=== PATIENT | female | born 1975 | race Caucasian/White ===

== ENCOUNTER 2019-04-05 23:58 | Observation (INO) | payer MEDICARE, OTHER ==
[~2019-04-05] VITALS: Ht 175.3 cm; Wt 52.7 kg
[2019-04-06] MEDS ORDERED: DONEPEZIL HCL10 MG PO (00:15)
[2019-04-06] MEDS ORDERED: QUETIAPINE PO (00:32)
[2019-04-06 00:48] LABS: BASOPHILS 0.2 % (0-2); EOSINOPHILS 0.2 % (0-7); HEMATOCRIT 39.7 % (36.0-48.0); HEMOGLOBIN 13.5 g/dL (12-16); IMMATURE GRANULOCYTES 0.3 % (0-5); LYMPHOCYTES 13.8 % (15-50); MCH 30.3 pg (26.0-34.0); MEAN PLATELET VOLUME 9.8 fL (7.4-10.4); MONOCYTES 7.6 % (2-11); NEUTROPHILS 77.9 % (40-80); PLATELET COUNT 228 10x3/uL (130-400); RBC 4.46 10x6/uL (4.00-5.40); RDW 13.3 % (11.5-14.5); WBC 11.8 10x3/uL (4.8-10.8)
--- NOTE | 2019-04-06 01:01 | NUR ---
PT UP TO [facility] TO TRY AND GIVE URINE.
[2019-04-06 01:03] LABS: CALC OSMOLALITY 281 mosm/kg (275-300); CALCIUM 8.9 mg/dL (8.5-10.1); CARBON DIOXIDE 23.7 mmol/L (21.0-32.0); CHLORIDE - SERUM 107 mmol/L (98-107); CREATININE - SERUM 0.7 mg/dL (0.6-1.3); GLUCOSE 93 mg/dL (74-106); POTASSIUM - SERUM 3.4 mmol/L (3.5-5.1); SODIUM 142 mmol/L (136-145); UREA NITROGEN 10 mg/dL (7-18); eGFR NON AFRICAN AMERICAN > 90 mL/min (90-120)
[2019-04-06 01:08] LABS: ALBUMIN 3.6 g/dL (3.4-5.0); ALKALINE PHOSPHATASE 61 U/L (46-116); ALT (SGPT) 31 U/L (10-68); BILIRUBIN - TOTAL 0.86 mg/dL (0.2-1.3); PROTEIN - SERUM 6.5 g/dL (6.4-8.2)
--- NOTE | 2019-04-06 01:11 | NUR ---
VOIDED 500 CC'S. URINE TO LAB. PT SMILING. 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
[2019-04-06 01:18] LABS: APPEARANCE CLEAR (CLEAR); BILIRUBIN NEGATIVE (NEGATIVE); COLOR YELLOW (YELLOW); GLUCOSE NEGATIVE (NEGATIVE); KETONE NEGATIVE (NEGATIVE); NITRITE NEGATIVE (NEGATIVE); PROTEIN NEGATIVE (NEGATIVE); UROBILINOGEN NORMAL (NORMAL)
[2019-04-06 01:25] LABS: UDS - AMPHET NEGATIVE QUAL (NEGATIVE); UDS - BARB NEGATIVE QUAL (NEGATIVE); UDS - BENZO POSITIVE QUAL (NEGATIVE); UDS - COCAINE NEGATIVE QUAL (NEGATIVE); UDS - OPIATE NEGATIVE QUAL (NEGATIVE); UDS - PCP NEGATIVE QUAL (NEGATIVE); UDS - THC NEGATIVE QUAL (NEGATIVE)
--- NOTE | 2019-04-06 03:00 | NUR ---
RECORDS FAXED TO [facility] IN [place].
--- NOTE | 2019-04-06 03:47 | NUR ---
RESTING QUIETLY. RE-FAXED TO [facility].
--- NOTE | 2019-04-06 04:37 | NUR ---
CT ORDERED. KLAMATH FALLS Yamsafer ON PHONE WITH SISTERFRANCES TO GIVE MORE INFO.
--- NOTE | 2019-04-06 05:34 | NUR ---
CT RESULTS BACK. PT RESTING WITH EYES CLOSED.
--- NOTE | 2019-04-06 06:43 | NUR ---
COPIES OF POA PLACED ON CHART.
--- NOTE | 2019-04-06 08:25 | NUR ---
GORDY HEARD YELLING AND BANGING. I WALKED IN TO SEE GORDY HITTING THE BEDSIDE TABLE. SAT DOWN ON BED AND LAID BACK. "I WANT TO GO HOME." FAMILY IN ROOM STATES SHE WAS "FINE 2 MIN AGO." PATIENT SEEMED CALM UPON LEAVING THE ROOM.
[2019-04-06] MEDS ORDERED: DONEPEZIL HCL5 MG PO (08:34)
[2019-04-06] MEDS ORDERED: SEROQUEL25 MG PO ×2 (08:35→08:38)
[2019-04-06] MEDS ORDERED: TAPAZOLE 5 MG TA5 MG PO (08:36)
[2019-04-06 08:41] VITALS: BP 116/63
[2019-04-06 10:22] VITALS: BP 116/63; Ht 175.3 cm; Wt 52.7 kg
[2019-04-06 10:31] LABS: T4 THYROXINE 6.6 ug/dL (4.7-13.3); THYROID STIMULATING HORMONE 2.71 uIU/mL (0.36-3.74)
[2019-04-06 12:06] VITALS: BP 105/52
--- NOTE | 2019-04-06 16:22 | MORECARE ---
CASE MANAGEMENT DISCHARGE SUMMARY PATIENT: HENRIK VENTURA UNIT: [id number] ADM DATE: 04/06/19 AGE: 43 : [birth year] SEX: F ROOM/BED: D.2231 AUTHOR: LENORE SEWELL PHYSICIAN: REFERRING PHYSICIAN: NILDA REMY MD DATE OF SERVICE: 04/06/19 Discharge Plan Patient Name: HENRIK VENTURA Facility: [facility]:[place] : 1975 Planned Disposition: Home Anticipated Discharge Date: Discharge Date: Expected LOS: Initial Reviewer: [email or web address] Initial Review Date: 04/06/2019 Generated: 04/06/19 5:22 pm Comments DCP- Discharge Planning Updated by [email or web address]: Bre Randolph on 04/06/19 3:[address] Patient Name: HENRIK VENTURA Admission Status: ER Accout number: [id number] Admission Date: 04-06-2019 : 1975 Admission Diagnosis: Attending: NILDA REMY Current LOS: 1 Anticipated DC Date: Planned Disposition: Home Primary Insurance: MEDICARE A & B Discharge Planning Comments: CM met with patient and family to complete initial dc planning assessment. CM educated patient on the CM role and verbal consent given by patient to complete assessment. Patient lives at home with her parents where she is partially independent At discharge patient plans to return home and feels this is a safe discharge. CM discussed availability of home health, rehab services, and medical equipment. Her family will drive her home at discharge. Patient denied known discharge needs at this time. CM will continue to follow and will assist as needed with dc plans/needs. Detective Lieutenant: Bre Randolph DCPIA - Discharge Planning Initial Assessment Updated by [email or web address]: Bre Randolph on 04/06/19 4:17 pm * Is the patient Alert and Oriented? Yes * How many steps to enter\exit or inside your home? * PCP BOB * Pharmacy [facility] * Preadmission Environment Home with Family * ADLs Partial Dependent * Partial ADLs (Assistance needed) Ambulation Bathing Dressing Eating Medication Management Toileting Transfers * Equipment None * List name and contact numbers for known caregivers / representatives who currently or will assist patient after discharge: WENDY VENTURA - [facility] - [phone] * Verbal permission to speak to the caregivers and representatives has been obtained from the patient. Yes * Community resources currently utilized None * Additional services required to return to the preadmission environment? No * Can the patient safely return to the preadmission environment? Yes * Has this patient been hospitalized within the prior 30 days at any hospital? No Patient Name: HENRIK VENTURA Page [id number] at 1622 All edits/amendments must be made on the electronic document DICTATION DATE: 04/06/191620 MECHANICAL DEVELOPER PROVER: JULIEN 04/06/191620 RPT#: [id number] DC DATE: STATUS: ADM IN [facility] [address] [place] [address] END OF REPORT
--- NOTE | 2019-04-06 16:44 | NUR ---
DISCHARGE INSTRUCTIONS GIVEN. PATIENT FAMILY VERBALIZED UNDERSTANDING. ESCORTED TO FRONT MYSELF VIA WHEELCHAIR.
--- NOTE | 2019-04-06 19:54 | MORECARE ---
CASE MANAGEMENT DISCHARGE SUMMARY PATIENT: HENRIK VENTURA UNIT: [id number] ADM DATE: 04/06/19 AGE: 43 : 73 SEX: F ROOM/BED: D.2231 AUTHOR: DONATODOC PHYSICIAN: REFERRING PHYSICIAN: NILDA REMY MD DATE OF SERVICE: 04/06/19 Discharge Plan Patient Name: HENRIK VENTURA Facility: [facility]:[place] : 1975 Planned Disposition: Home Anticipated Discharge Date: Discharge Date: 04/06/2019 Expected LOS: Initial Reviewer: [email or web address] Initial Review Date: 04/06/2019 Generated: 04/06/19 8:54 pm Comments DCP- Discharge Planning Updated by [email or web address]: Bre Randolph on 04/06/19 3:[address] Patient Name: HENRIK VENTURA Admission Status: ER Accout number: [id number] Admission Date: 04-06-2019 : 1975 Admission Diagnosis: Attending: NILDA REMY Current LOS: 1 Anticipated DC Date: Planned Disposition: Home Primary Insurance: MEDICARE A & B Discharge Planning Comments: CM met with patient and family to complete initial dc planning assessment. CM educated patient on the CM role and verbal consent given by patient to complete assessment. Patient lives at home with her parents where she is partially independent At discharge patient plans to return home and feels this is a safe discharge. CM discussed availability of home health, rehab services, and medical equipment. Her family will drive her home at discharge. Patient denied known discharge needs at this time. CM will continue to follow and will assist as needed with dc plans/needs. Smelter Liner: Bre Randolph DCPIA - Discharge Planning Initial Assessment Updated by [email or web address]: Bre Randolph on 04/06/19 4:17 pm * Is the patient Alert and Oriented? Yes * How many steps to enter\exit or inside your home? * PCP BOB * Pharmacy [facility] * Preadmission Environment Home with Family * ADLs Partial Dependent * Partial ADLs (Assistance needed) Ambulation Bathing Dressing Eating Medication Management Toileting Transfers * Equipment None * List name and contact numbers for known caregivers / representatives who currently or will assist patient after discharge: WENDY VENTURA - [facility] - [phone] * Verbal permission to speak to the caregivers and representatives has been obtained from the patient. Yes * Community resources currently utilized None * Additional services required to return to the preadmission environment? No * Can the patient safely return to the preadmission environment? Yes * Has this patient been hospitalized within the prior 30 days at any hospital? No Last DP export: 04/06/19 3:22 pm Patient Name: HENRIK VENTURA Page [id number] at 1953 All edits/amendments must be made on the electronic document DICTATION DATE: 04/06/191953 ANIMAL PATHOLOGY TEACHER: JULIEN 04/06/191953 RPT#: [id number] DC DATE:04/06/19 STATUS: DIS IN [facility] [address] [place] [address] END OF REPORT
== END 2019-04-06 18:37 | disposition home or self-care (01) ==
LOC: D.ER 23:58 → OBSVTIME 04-06 06:12 → D.MS 04-06 06:12
PROVIDERS: Family Medicine; ADMIT Emergency Medicine; ATTEND Emergency Medicine
DX: G93.41 Metabolic encephalopathy (principal); E87.6 Hypokalemia; F84.0 Autistic disorder; G93.5 Compression of brain